=== PATIENT | female | born 1980 | race Caucasian/White ===

== ENCOUNTER 2021-09-16 11:44 | Emergency (ER) | payer OTHER, SELFPAY ==
--- NOTE | ~2021-09-16 | XR_ITS ---
EXAMINATION: XR KNEE, RIGHT CLINICAL INFORMATION: Pain COMPARISON: None TECHNIQUE: Three views of the right knee. FINDINGS: Bone alignment is normal. No fracture or dislocation is seen. The joint spaces are normal. There is a moderate to large joint effusion. XR/XR knee RT 2V IMPRESSION: Joint effusion. Otherwise unremarkable exam.
[2021-09-16 11:54] VITALS: BP 110/56; PULSE 90; RESP 18; TEMP 36.6; O2SAT 99; BMI 24.7
--- NOTE | 2021-09-16 12:57 | ED.LOWEXIN ---
HPI - Extremity Injury (Lower) General Chief Complaint: Extremity Injury, Lower Stated Complaint: R LEG INJ Time Seen by Provider: 09/16/21 12:56 Source: patient Mode of arrival: ambulatory Limitations: no limitations History of Present Illness HPI Narrative: 41-year-old female presents to the emergency department with a one day of right-sided knee pain s/p fall about 10 feet while rock climbing. She states that she fell straight onto her right knee, did not hit her head, and doesnt report pain anywhere else. She state when she fell she heard a crunch and immediately started experiencing 10/10 pain. The pain is worse with ambulation, better at rest. She also noted significant swelling to the area immediately after. MD complaint: knee injury (Right ) Onset (ago): day(s) (1) Type of Injury: blunt Place: other (Rock climbing) Severity: severe Severity scale (1-10): 10 Relieving factors: nothing Exacerbating factors: weight bearing and movement Context: fall Associated symptoms: other (Crunching noise) Other symptoms: none Related Data Previous Rx's Medication Instructions Recorded naproxen 500 mg tablet 500 mg PO BID #14 tab 09/16/21 Allergies Allergy/AdvReac Type Severity Reaction Status Date / Time Unable to Assess Allergy Unverified 09/16/21 12:57 Review of Systems Review of Systems: Yes all other systems are reviewed and are negative Constitutional: Constitutional: Reports no additional constitutional complaints, Denies body ache(s), Denies chills, Denies fever(s), Denies headache(s) and Denies weakness Eyes: Eyes: Reports no additional eye complaints and Denies change in vision ENT: Reports system reviewed and no additional complaints, except as documented, Denies dizziness, Denies headache(s), Denies nasal congestion, Denies nasal discharge and Denies neck pain Cardiovascular: Cardiovascular: Reports no additional cardiovascular complaints, Denies chest pain, Denies leg edema and Denies dyspnea Respiratory: Respiratory: Reports no additional respiratory complaints, Denies cough and Denies dyspnea Gastrointestinal: Gastrointestinal: Reports no additional gastrointestinal complaints, Denies abdominal pain, Denies diarrhea, Denies nausea and Denies vomiting Genitourinary: Genitourinary: Reports no additional female genitourinary complaints and Denies urinary incontinence Musculoskeletal: Musculoskeletal: Reports no additional musculoskeletal complaints, Denies back pain, Reports arthralgias (right knee ), Reports joint swelling (right knee), Denies neck pain, Denies numbness and Denies tingling Integumentary/Breasts: Skin/Breast: Reports system reviewed and no additional complaints, except as docu and Denies rash Neurologic: Reports system reviewed and no additional complaints, except as documented, Denies Abnormal speech present, Denies dizziness, Denies headache(s), Denies numbness, Denies tingling and Denies weakness PMFSH Past Medical History Attestation statement: The following information was validated with the patient. Source: old records reviewed and nursing notes reviewed Medical History No known health problems Social History Social History Advance Directives: Yes Advance Directives Information Provided: Yes Advance Directives on File: No Patient : No Physical Exam Vital Signs: Vital Signs: Last Vital Signs Temp 97.9 F 09/16/21 11:54 Pulse 90 09/16/21 11:54 Resp 18 09/16/21 11:54 BP 110/56 L 09/16/21 11:54 Pulse Ox 99 09/16/21 11:54 Body Mass Index 24.7 Const: General: cooperative, healthy appearing, comfortable and no acute distress Orientation/consciousness: patient oriented x3 Limitations: no limitations HENMT: Head: Yes normal to inspection Ears: hearing grossly normal bilaterally General nose exam: Normal external nose present Face and sinus: Yes normal facial exam Mouth: Normal oral and palatal mucosa present Throat: Yes posterior oropharynx normal Eyes: General: appearance normal, both eyes and all related structures Pupils: Equal, round and reactive pupils present Neck: Neck: Yes normal visual inspection Chest: Chest palpation & inspection: normal inspection of the chest Resp: Effort & Inspection: normal respiratory effort Auscultation: clear to auscultation bilaterally Cardio: Rate: regular rate Rhythm: regular rhythm Peripheral pulses: Peripheral pulses 2+ throughout GI: Inspection: Yes normal to inspection Palpation (GI): Soft to palpation and nontender Auscultation: normal bowel sounds Back/Spine/Pelvis: Thoracic/Lumbar Spine: thoracic and lumbar spine normal to inspection Skin: General skin exam: no rashes or lesions noted Neuro: General: patient oriented x3, no focal motor deficits and normal sensation to monofilament Cranial nerves: Yes Equal, round and reactive pupils present Cognition (Neuro): normal cognition Speech: No Abnormal speech present Gait exam (Neuro): Normal gait present Motor exam (neuro): 5/5 motor strength present throughout Extrem: Other: Moderate joint effusion noted to right knee. Full range of motion, however painful. Negative anterior drawer, posterior drawer, Apley, valgus and varus. No evident ligamentous injury. Pulses 2+ equal in bilateral to lower extremities. No overlying skin changes. Ambulating with an evident limp. Neurovascularly intact. Course Reevaluation(s) Reevaluation #1: X-ray of right knee shows moderate knee effusion. No fractures, or dislocations noted. Patient states she has her own orthopedist, who she will follow-up with, however she will be provided our orthopedists is information. She will be discharged with an Kedar wrap, crutches, and naproxen for the pain. She has also been educated on rice. She has been advised to return to the emergency department with new or worsening symptoms, or if she develops overlying skin changes, fevers, chills. She safe for discharge home. MDM - Extremity Injury (Lower) MDM Narrative Medical decision making narrative: [id number] 41-year-old female with no known medical history presents to the emergency department with right knee pain and swelling since last night status post fall while rock climbing. She states when she fell she fell right on her knee, she heard a crunch, and immediately started having pain. Pain is worse with movement, better at rest. Upon physical examination there is swelling to the right knee, with an overlying effusion. No skin changes. Full range of motion, however painful. With patient ambulation, limp is noted. Plan at this time is to obtain a plain film. Give patient crutches, an Kedar wrap, Toradol for pain. Medical Records Attestation: I reviewed the patient's medical records. Lab Data Attestation: I reviewed the patient's lab results. Imaging Data Right knee x-ray: Attestation: I personally reviewed and interpreted this imaging study as follows: Radiologist's impression: FINDINGS: Bone alignment is normal. No fracture or dislocation is seen. The joint spaces are normal. There is a moderate to large joint effusion.? XR/XR knee RT 2V IMPRESSION: Joint effusion. Otherwise unremarkable exam. Discharge Plan Discharge Clinical Impression: Effusion of knee joint right Patient Disposition: Home, Self-Care Instructions: Swollen Knee Joint (ED), R.I.C.E. Treatment (ED), Swollen Joint (ED) Additional Instructions: Apply Kedar bandages instructed. Use crutches as instructed. Rest, ice, compress, elevate. Take naproxen and anti-inflammatory medication for pain. Follow-up with her primary care provider Follow-up with orthopedics in 1-2 weeks if symptoms do not resolve. Return to the emergency department new or worsening symptoms such as severe pain, overlying skin changes, fevers, chills. Prescriptions: New naproxen 500 mg tablet 500 mg PO BID Qty: 14 RF: 0 Referrals: Karen Taylor MD [Primary Care Provider] - 2 days John Sinha MD [Physician] - 1 week
[2021-09-16] MEDS: Ketorolac Tromethamine 15 MG/ML VIAL 30 MG IM (13:05)
== END 2021-09-16 13:48 | disposition home or self-care (01) ==
PROVIDERS: Emergency Provider Emergency Medicine; PCP Internal Medicine
DX: M25.461 Effusion, right knee (principal); Z79.899 Other long term (current) drug therapy
CPT/HCPCS: 73560; 96372; 99283; 99284; J1885